=== PATIENT | male | born 1990 | race Caucasian/White ===

== ENCOUNTER → 2024-06-02 14:35 | Outpatient (REF) | payer BC, SELFPAY | LOC: RAD 14:35 | PROVIDERS: ATTENDING PHYSICIAN Physician Assistant; FAMILY PHYSICIAN Physician Assistant | DX: E04.2 Nontoxic multinodular goiter (principal); R61 Generalized hyperhidrosis; F41.9 Anxiety disorder, unspecified | CPT/HCPCS: 76536 ==